=== PATIENT | female | born 2005 | race Caucasian/White ===

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

== ENCOUNTER 2024-02-08 10:57 | Outpatient (CLI) | payer BC | END 2024-02-08 10:58 | disposition home or self-care (01) | LOC: SCSRAD 10:57 | PROVIDERS: ATTEND Nurse Practitioner Family | DX: S93.402A Sprain of unspecified ligament of left ankle, initial encounter (principal) ==